=== PATIENT | female | born 1995 | race Two or more races ===

== ENCOUNTER 2019-07-06 19:44 | Emergency (ER) | payer BC, OTHER ==
[~2019-07-06] VITALS: Ht 162.6 cm; Wt 69.9 kg
[2019-07-06 21:24] LABS: Basophils # (auto) 0 10 ^3/uL (0-0.2); Basophils % (auto) 0.3 % (0.0-2.0); Eosinophils # (auto) 0.1 10 ^3/uL (0-0.8); Eosinophils % (auto) 1.9 % (0.0-7.0); Hematocrit 42.2 % (36.0-46.0); Hemoglobin 14.4 g/dL (12.2-16.2); Lymphocytes # (auto) 1.6 10 ^3/uL (0.4-5.4); Lymphocytes % (auto) 23.3 % (10.0-50.0); Mean Corpuscular Hemoglobin 33.1 pg (28.0-32.0); Mean Corpuscular Volume 97.3 fL (80.0-100.0); Monocytes # (auto) 0.4 10 ^3/uL (0-1.3); Monocytes % (auto) 5.5 % (0.0-12.0); Neutrophils # (auto) 4.8 10 ^3/uL (1.6-8.6); Nucleated Red Blood Cells % 0.1 %; Platelet Count (auto) 204 10^3/uL (140-450); Red Blood Cells 4.34 10^6/uL (4.0-5.20); Red Cell Distribution Width 13.7 % (11.8-14.3); White Blood Cell 6.9 10^3/uL (4.4-10.8)
[2019-07-06 21:40] LABS: Albumin 3.7 g/dL (3.4-5.0); BUN/Creatinine Ratio 22.2; Calcium 8.7 mg/dL (8.5-10.1); Potassium 3.9 mmol/L (3.5-5.1)
[2019-07-06 21:43] LABS: Bilirubin, Total 0.4 mg/dL (0.2-1.0); Total Protein 7.8 g/dL (6.4-8.2)
[2019-07-06 23:02] LABS: Urine Bacteria NONE SEEN /hpf (None Seen); Urine Blood 2+ /uL (Negative); Urine Mucus FEW (None Seen); Urine Specific Gravity 1.027 (1.001-1.035); Urine WBC 2 /hpf (0 - 5)
[2019-07-07] MEDS ORDERED: SODIUM CHLORIDE 0.9% 1,000 ML IV ONE (00:30)
[2019-07-07 04:00] VITALS: BP 97/54
== END 2019-07-07 04:00 | disposition home or self-care (01) ==
LOC: ER 19:44
DX: O20.9 Hemorrhage in early pregnancy, unspecified (principal); O26.891 Other specified pregnancy related conditions, first trimester; R10.9 Unspecified abdominal pain; Z3A.01 Less than 8 weeks gestation of pregnancy
CPT/HCPCS: 36415; 76801; 80053; 81001; 84702; 85025; 86850; 86900; 86901

== ENCOUNTER → 2019-09-01 | Outpatient (CLI) | payer BC, OTHER ==
[2019-09-01 17:47] LABS: Basophils # (auto) 0 10 ^3/uL (0-0.2); Basophils % (auto) 0.4 % (0.0-2.0); Eosinophils # (auto) 0.1 10 ^3/uL (0-0.8); Eosinophils % (auto) 1.8 % (0.0-7.0); Hematocrit 40.9 % (36.0-46.0); Hemoglobin 14.3 g/dL (12.2-16.2); Lymphocytes # (auto) 1.6 10 ^3/uL (0.4-5.4); Lymphocytes % (auto) 22.2 % (10.0-50.0); Mean Corpuscular Hemoglobin 33.9 pg (28.0-32.0); Mean Corpuscular Hgb Conc. 34.9 g/dL (32.0-36.0); Mean Corpuscular Volume 97.3 fL (80.0-100.0); Monocytes # (auto) 0.3 10 ^3/uL (0-1.3); Monocytes % (auto) 4.3 % (0.0-12.0); Neutrophils % (auto) 71.3 % (37.0-80.0); Platelet Count (auto) 191 10^3/uL (140-450); Red Blood Cells 4.21 10^6/uL (4.0-5.20); Red Cell Distribution Width 13.8 % (11.8-14.3)
[2019-09-01 17:55] LABS: Urine Bacteria NONE SEEN /hpf (None Seen); Urine Blood Negative /uL (Negative); Urine Mucus FEW (None Seen); Urine Specific Gravity 1.022 (1.001-1.035); Urine Sperm PRESENT /hpf (None Seen); Urine WBC 1 /hpf (0 - 5)
[2019-09-01 18:05] LABS: Albumin 3.3 g/dL (3.4-5.0); Calcium 8.6 mg/dL (8.5-10.1); Potassium 3.9 mmol/L (3.5-5.1)
[2019-09-01 18:10] LABS: BUN/Creatinine Ratio 8.8; Bilirubin, Total 0.3 mg/dL (0.2-1.0); Total Protein 7.2 g/dL (6.4-8.2)
[2019-09-01 18:25] LABS: Thyroid Stimulating Hormone 0.83 uIU/mL (0.358-3.74)
== END | disposition home or self-care (01) ==
LOC: LAB 17:24
PROVIDERS: ATTEND Internal Medicine
DX: R11.0 Nausea (principal); R35.8 Other polyuria
CPT/HCPCS: 36415; 80053; 81001; 84439; 84443; 84702; 85025; 85652

== ENCOUNTER 2019-12-28 21:22 | Observation (INO) | payer BC, OTHER ==
[~2019-12-28] VITALS: Ht 162.6 cm; Wt 83.0 kg
[2019-12-28] MEDS ORDERED: TERBUTALINE SULFATE 1 MG/ML 1ML VIAL SC SCH (22:15)
[2019-12-28] MEDS ORDERED: LACTATED RINGER'S 1,000 ML IV ONE (22:15)
[2019-12-28 22:17] LABS: Urine Bacteria NONE SEEN /hpf (None Seen); Urine Blood Negative /uL (Negative); Urine Hyaline Cast FEW /lpf (0 - 2); Urine Mucus FEW (None Seen); Urine Specific Gravity 1.014 (1.001-1.035); Urine WBC 3 /hpf (0 - 5)
== END 2019-12-28 23:25 | disposition home or self-care (01) ==
LOC: UNDOADMOB 21:22 → LDRP 21:22 → UNDODISOB 23:25
PROVIDERS: ADMIT Obstetrics & Gynecology; ATTEND Obstetrics & Gynecology
DX: O99.891 Other specified diseases and conditions complicating pregnancy (principal); M79.7 Fibromyalgia; Z3A.32 32 weeks gestation of pregnancy
CPT/HCPCS: 59025; 76815; 81001; 81002; 94760; 96360; 96361; 96372; G0378; J3105

== ENCOUNTER 2020-01-08 08:42 | Observation (INO) | payer BC, OTHER | END 2020-01-08 10:25 | disposition home or self-care (01) | LOC: LDRP 08:42 | PROVIDERS: ADMIT Specialist; ATTEND Specialist | DX: O62.9 Abnormality of forces of labor, unspecified (principal); O42.913 Preterm premature rupture of membranes, unspecified as to length of time between rupture and onset of labor, third trimester; Z3A.34 34 weeks gestation of pregnancy | CPT/HCPCS: 59025; 81002; 84112; G0378; Q0114 ==

== ENCOUNTER 2020-01-10 19:06 | Observation (INO) | payer BC, OTHER ==
[2020-01-10] MEDS ORDERED: PREN-96 PO (19:40)
[2020-01-10] MEDS: TERBUTALINE SULFATE 1 MG/ML 1ML VIAL SC SCH ×2 (20:19→20:44)
[2020-01-10] MEDS ORDERED: NIF10C GT (21:52)
[2020-01-10] MEDS ORDERED: NIF10C PO (22:06)
== END 2020-01-10 22:20 | disposition home or self-care (01) ==
LOC: LDRP 19:06
PROVIDERS: ADMIT Obstetrics & Gynecology; ATTEND Obstetrics & Gynecology
DX: O62.9 Abnormality of forces of labor, unspecified (principal); O42.913 Preterm premature rupture of membranes, unspecified as to length of time between rupture and onset of labor, third trimester; Z79.899 Other long term (current) drug therapy; Z3A.34 34 weeks gestation of pregnancy
CPT/HCPCS: 59025; 81002; 82948; 82962; 94760; 96372; G0378; J3105

== ENCOUNTER → 2020-01-13 | Outpatient (CLI) | payer BC, OTHER ==
[~2020-01-13] MED LIST: NIF10C PO; PREN-96 PO
[2020-01-13 08:59] LABS: Basophils # (auto) 0 10 ^3/uL (0-0.2); Basophils % (auto) 0.3 % (0.0-2.0); Eosinophils # (auto) 0.2 10 ^3/uL (0-0.8); Eosinophils % (auto) 2.7 % (0.0-7.0); Hematocrit 36.7 % (36.0-46.0); Hemoglobin 11.9 g/dL (12.2-16.2); Lymphocytes # (auto) 1.7 10 ^3/uL (0.4-5.4); Lymphocytes % (auto) 22.9 % (10.0-50.0); Mean Corpuscular Hemoglobin 29.7 pg (28.0-32.0); Mean Corpuscular Hgb Conc. 32.3 g/dL (32.0-36.0); Mean Corpuscular Volume 91.8 fL (80.0-100.0); Monocytes # (auto) 0.5 10 ^3/uL (0-1.3); Monocytes % (auto) 6.5 % (0.0-12.0); Neutrophils % (auto) 67.6 % (37.0-80.0); Nucleated Red Blood Cells % 0.1 %; Platelet Count (auto) 194 10^3/uL (140-450); Red Cell Distribution Width 14.6 % (11.8-14.3); White Blood Cell 7.4 10^3/uL (4.4-10.8)
== END | disposition home or self-care (01) ==
LOC: LAB 08:43
PROVIDERS: ATTEND Obstetrics & Gynecology
DX: O99.810 Abnormal glucose complicating pregnancy (principal); Z3A.35 35 weeks gestation of pregnancy
CPT/HCPCS: 36415; 85025

== ENCOUNTER 2020-01-16 08:25 | Observation (INO) | payer BC, OTHER | END 2020-01-16 09:30 | disposition home or self-care (01) | LOC: LDRP 08:25 | PROVIDERS: ADMIT Specialist; ATTEND Specialist | DX: O60.03 Preterm labor without delivery, third trimester (principal); Z3A.35 35 weeks gestation of pregnancy | CPT/HCPCS: 59025; 81002; G0378 ==

== ENCOUNTER → 2020-01-18 | Outpatient (CLI) | payer BC, OTHER ==
[2020-01-19 05:07] LABS: RPR Non Reactive (Non Reactive)
== END | disposition home or self-care (01) ==
LOC: LAB 09:39
PROVIDERS: ATTEND Obstetrics & Gynecology
DX: Z34.93 Encounter for supervision of normal pregnancy, unspecified, third trimester (principal); Z3A.35 35 weeks gestation of pregnancy
CPT/HCPCS: 84112; 86592

== ENCOUNTER 2020-01-23 08:33 | Observation (INO) | payer BC, OTHER | END 2020-01-23 10:25 | disposition home or self-care (01) | LOC: LDRP 08:33 | PROVIDERS: ADMIT Obstetrics & Gynecology; ATTEND Obstetrics & Gynecology | DX: O60.03 Preterm labor without delivery, third trimester (principal); Z3A.38 38 weeks gestation of pregnancy | CPT/HCPCS: 59025; 76818; 81002; G0378 ==

== ENCOUNTER 2020-02-04 13:44 | Observation (INO) | payer BC, OTHER | END 2020-02-04 16:13 | disposition home or self-care (01) | LOC: LDRP 13:44 | PROVIDERS: ADMIT Specialist; ATTEND Specialist | DX: O24.419 Gestational diabetes mellitus in pregnancy, unspecified control (principal); O62.9 Abnormality of forces of labor, unspecified; O12.03 Gestational edema, third trimester; Z3A.38 38 weeks gestation of pregnancy | CPT/HCPCS: 59025; 76818; 81002; 82948; 82962; G0378; U0003 ==

== ENCOUNTER 2020-02-05 07:20 | Observation (INO) | payer BC, OTHER ==
[~2020-02-05] VITALS: Ht 162.6 cm; Wt 87.1 kg
== END 2020-02-05 08:55 | disposition home or self-care (01) ==
LOC: LDRP 07:20
PROVIDERS: ADMIT Specialist; ATTEND Specialist
DX: O60.03 Preterm labor without delivery, third trimester (principal); Z3A.38 38 weeks gestation of pregnancy; Z79.899 Other long term (current) drug therapy
CPT/HCPCS: 59025; 81002; 82948; 82962; G0378

== ENCOUNTER 2020-02-05 23:41 | Observation (INO) | payer BC, OTHER ==
[~2020-02-05] VITALS: Ht 162.6 cm; Wt 86.6 kg
[2020-02-06] MEDS ORDERED: TERBUTALINE SULFATE 1 MG/ML 1ML VIAL SC SCH (00:45)
[2020-02-06] MEDS ORDERED: TERBUTALINE SULFATE 1 MG/ML 1ML VIAL SC ONE (00:46)
--- NOTE | 2020-02-06 00:58 | NUR ---
# 1 Dose of terbutaline 0.25mg given sub cut.
[2020-02-07] MEDS ORDERED: INSLANTI SC (04:58)
== END 2020-02-06 02:08 | disposition home or self-care (01) ==
LOC: UNDOADMOB 23:41 → LDRP 23:41 → UNDODISOB 02-06 02:08
PROVIDERS: ADMIT Specialist; ATTEND Specialist
DX: O62.9 Abnormality of forces of labor, unspecified (principal); Z3A.38 38 weeks gestation of pregnancy
CPT/HCPCS: 59025; 81002; 96372; G0378; J3105

== ENCOUNTER 2020-02-07 04:20 | Inpatient (IN) | payer BC, OTHER ==
[2020-02-07] VITALS (11 sets, daily range): BP systolic 91–131; BP diastolic 51–77
[~2020-02-07] VITALS: Ht 162.6 cm; Wt 87.1 kg
[2020-02-07] MEDS ORDERED: LACTATED RINGER'S 1,000 ML IV ONE (04:30)
[2020-02-07] MEDS ORDERED: ceFAZolin 1GM/50ML 50 ML IV ONE ×2 (04:30→15:39)
[2020-02-07] MEDS ORDERED: INSLANTI SC (04:58)
[2020-02-07 05:10] LABS: Basophils # (auto) 0 10 ^3/uL (0-0.2); Basophils % (auto) 0.2 % (0.0-2.0); Eosinophils # (auto) 0.1 10 ^3/uL (0-0.8); Eosinophils % (auto) 1.7 % (0.0-7.0); Hematocrit 35.3 % (36.0-46.0); Hemoglobin 11.7 g/dL (12.2-16.2); Lymphocytes # (auto) 1.6 10 ^3/uL (0.4-5.4); Lymphocytes % (auto) 21.3 % (10.0-50.0); Mean Corpuscular Hemoglobin 29.6 pg (28.0-32.0); Mean Corpuscular Hgb Conc. 33.2 g/dL (32.0-36.0); Mean Corpuscular Volume 88.9 fL (80.0-100.0); Monocytes # (auto) 0.5 10 ^3/uL (0-1.3); Neutrophils # (auto) 5.4 10 ^3/uL (1.6-8.6); Neutrophils % (auto) 69.8 % (37.0-80.0); Nucleated Red Blood Cells % 0.3 %; Platelet Count (auto) 221 10^3/uL (140-450); Red Blood Cells 3.97 10^6/uL (4.0-5.20); Red Cell Distribution Width 15.2 % (11.8-14.3); White Blood Cell 7.7 10^3/uL (4.4-10.8)
[2020-02-07 05:29] LABS: Urine Bacteria FEW /hpf (None Seen); Urine Blood Negative /uL (Negative); Urine Mucus FEW (None Seen); Urine Specific Gravity 1.013 (1.001-1.035); Urine WBC 7 /hpf (0 - 5)
[2020-02-07 05:29] LABS: Albumin 2.6 g/dL (3.4-5.0); Potassium 3.6 mmol/L (3.5-5.1)
[2020-02-07 05:34] LABS: BUN/Creatinine Ratio 16.3; Bilirubin, Total 0.2 mg/dL (0.2-1.0); Total Protein 6.7 g/dL (6.4-8.2)
[2020-02-07] MEDS: LACTATED RINGER'S 1,000 ML IV SCH ×2 (06:06→17:08)
[2020-02-07 06:07] LABS: INR 0.89 (0.9-1.15); Partial Thromboplastin Time 29.1 sec (23.0-31.2)
[2020-02-07] MEDS ORDERED: TETRACAINE 1% INJ 2 ML VIAL IJ ONE (06:56)
[2020-02-07] MEDS ORDERED: MORPHINE SULF(PF) 0.5MG/ML 10ML VIAL ONE (07:08)
[2020-02-07] MEDS ORDERED: SODIUM CHLORIDE LOCK 10 ML ONE (07:08)
[2020-02-07] MEDS ORDERED: ePHEDrine SULFATE 50 MG/ML AMP ONE (07:08)
[2020-02-07] MEDS ORDERED: MIDAZOLAM HCL 1MG/1ML-2 ML VIAL ONE (07:08)
[2020-02-07] MEDS ORDERED: oxyTOCIN 10 UNIT/ML 10ML VIAL ONE (07:08)
[2020-02-07] MEDS ORDERED: ONDANSETRON HCL 4 MG/2 ML VIAL ONE (07:08)
[2020-02-07] MEDS ORDERED: fentaNYL CITRATE 100 MCG/2 ML VL ONE (07:08)
[2020-02-07] MEDS ORDERED: EPINEPHrine HCL 1 MG/1 ML AMP ONE (07:13)
[2020-02-07] MEDS ORDERED: BUPIVACAINE/DEXTROSE MPF 0.75% 2 ML AMP IT ONE (07:13)
[2020-02-07] MEDS ORDERED: LACT. RINGERS/OXYTOCIN 20UNITS 1,000 ML IV ONE (07:30)
[2020-02-07] MEDS ORDERED: ONDANSETRON HCL 4 MG/2 ML VIAL IV PRN (07:30)
[2020-02-07] MEDS ORDERED: ePHEDrine SULFATE 50 MG/ML AMP IV PRN (07:30)
[2020-02-07] MEDS ORDERED: GUM (CHEWING) 1 GUM CHEW CHEW ONE (07:30)
[2020-02-07] MEDS ORDERED: diphenhdrAMINE HCL 50 MG/1 ML VL IV PRN (09:15)
[2020-02-07] MEDS ORDERED: NALOXONE HCL 0.4 MG/ML VIAL IV PRN (09:15)
[2020-02-07] MEDS ORDERED: MORPHINE SULFATE 4 MG/ML SYR/VIAL IV PRN (09:15)
[2020-02-07] MEDS ORDERED: ACCU-CHEK COMFORT CURVE STRIP VI ONE (09:15)
[2020-02-07] MEDS ORDERED: KETOROLAC TROMETH 30 MG/ML 1ML VIAL IV ONE (09:15)
[2020-02-07] MEDS ORDERED: HYDROmorphone HCL 2 MG/ML VL IV PRN (09:15)
[2020-02-07] MEDS ORDERED: METOCLOPRAMIDE HCL 5MG/ml INJ 2ml VIAL IV PRN (09:15)
[2020-02-07 10:11] LABS: Hematocrit 35.2 % (36.0-46.0); Hemoglobin 11.5 g/dL (12.2-16.2); Mean Corpuscular Hemoglobin 29.3 pg (28.0-32.0); Mean Corpuscular Hgb Conc. 32.8 g/dL (32.0-36.0); Mean Corpuscular Volume 89.2 fL (80.0-100.0); Platelet Count (auto) 181 10^3/uL (140-450); Red Blood Cells 3.94 10^6/uL (4.0-5.20); Red Cell Distribution Width 15.2 % (11.8-14.3); White Blood Cell 7.8 10^3/uL (4.4-10.8)
[2020-02-07 10:16] LABS: Basophils % (manual) 0 (0.0-2.0); Blast Cells 0; Promyelocytes % 0; Reactive Lymphocytes 0
[2020-02-07] MEDS: MORPHINE SULFATE 4 MG/ML SYR/VIAL IV PRN ×3 (11:34→20:07)
[2020-02-07 11:53] LABS: Band Neutrophils % (manual) 6; Eosinophils % (manual) 2 (0-7); Lymphocytes % (manual) 21 (10.0-50.0); Metamyelocytes % 1; Monocytes % (manual) 3 (0-12); Myelocytes % 1
[2020-02-07] MEDS ORDERED: ceFAZolin 1GM/50ML 50 ML IV SCH (12:00)
[2020-02-07] MEDS: ceFAZolin 1GM/50ML 50 ML IV SCH (15:50)
--- NOTE | 2020-02-07 18:09 | NUR ---
SURYA Ramirez RN Addendum: 02/07/20 at 1809 by THANH VEGA RN Amended: Links added.
[2020-02-07] MEDS ORDERED: ACETAMINOPHEN IV 1000 MG/100ML (10MG/ML) IV PRN (23:00)
[2020-02-08] VITALS (8 sets, daily range): BP systolic 101–125; BP diastolic 57–71
[2020-02-08] MEDS: ceFAZolin 1GM/50ML 50 ML IV SCH ×2 (00:06→07:10)
--- NOTE | 2020-02-08 00:15 | NUR ---
Ambulation: Patient OOB with standby assistance by RN. Patient ambulated to nursery with steady gait. [facility] teaching provided with returned demonstration by patient. Clean gown provided and bed linen changed. Patient ambulated back to bed with steady gait and no distress noted.
[2020-02-08] MEDS: MORPHINE SULFATE 4 MG/ML SYR/VIAL IV PRN (04:27)
--- NOTE | 2020-02-08 04:54 | NUR ---
March catheter dc'd Order to discontinue march catheter. March dc'd with clean technique following deflation of balloon. Patient tolerated well with no complaints of pain. Continue care.
[2020-02-08 05:08] LABS: RPR Non Reactive (Non Reactive)
[2020-02-08] MEDS ORDERED: KETOROLAC TROMETH 30 MG/ML 1ML VIAL IV ONE (06:45)
[2020-02-08 07:42] LABS: Basophils # (auto) 0 10 ^3/uL (0-0.2); Basophils % (auto) 0.1 % (0.0-2.0); Eosinophils # (auto) 0.1 10 ^3/uL (0-0.8); Eosinophils % (auto) 0.7 % (0.0-7.0); Hematocrit 31.8 % (36.0-46.0); Hemoglobin 10.6 g/dL (12.2-16.2); Lymphocytes % (auto) 12.7 % (10.0-50.0); Mean Corpuscular Hemoglobin 29.7 pg (28.0-32.0); Mean Corpuscular Hgb Conc. 33.3 g/dL (32.0-36.0); Mean Corpuscular Volume 89.2 fL (80.0-100.0); Monocytes # (auto) 0.4 10 ^3/uL (0-1.3); Neutrophils # (auto) 6.5 10 ^3/uL (1.6-8.6); Neutrophils % (auto) 81.5 % (37.0-80.0); Nucleated Red Blood Cells % 0.1 %; Platelet Count (auto) 171 10^3/uL (140-450); Red Blood Cells 3.56 10^6/uL (4.0-5.20); Red Cell Distribution Width 15.6 % (11.8-14.3); White Blood Cell 7.9 10^3/uL (4.4-10.8)
[2020-02-08] MEDS: DOCUSATE SOD 100 MG CAP PO SCH ×2 (10:10→22:00)
[2020-02-08] MEDS: SIMETHICONE 80 MG CHEWABLE TABLET PO PRN ×3 (10:10→21:59)
[2020-02-08] MEDS: HYDROcodone-ACET 5/325MG TAB PO PRN ×4 (10:10→18:07)
[2020-02-08] MEDS: IBUPROFEN 800 MG TAB PO PRN ×2 (13:51→22:00)
[2020-02-09 03:00] VITALS: BP 103/59
[2020-02-09] MEDS: HYDROcodone-ACET 5/325MG TAB PO PRN ×5 (03:06→18:50)
[2020-02-09 07:00] VITALS: BP 122/72
[2020-02-09] MEDS: IBUPROFEN 800 MG TAB PO PRN ×3 (07:05→16:49)
[2020-02-09] MEDS: DOCUSATE SOD 100 MG CAP PO SCH ×2 (09:54→22:12)
[2020-02-09 11:00] VITALS: BP 105/75
[2020-02-09 15:00] VITALS: BP 88/55
--- NOTE | 2020-02-09 16:57 | NUR ---
IV removal IV DC'd with clean sterile technique, catheter fully intact. Pressure dressing applied to site. Patient tolerated well. NOTE:
--- NOTE | 2020-02-09 18:10 | NUR ---
Received care and report from Timoteo Harris.
[2020-02-09 18:38] VITALS: BP 106/73
--- NOTE | 2020-02-09 21:34 | NUR ---
SBAR to Boogie Limon CMN, pt unable to have a bowel movement request to give a suppository. Received order Dulcolax 10 mg RC once.
[2020-02-09] MEDS ORDERED: BISACODYL 10 MG RECT SUPP PR ONE (21:45)
[2020-02-09 23:00] VITALS: BP 110/75
[2020-02-09] MEDS ORDERED: MEASLES, MUMPS & RUBELLA VAC(MMRII) 0.5ML SC ONE (23:15)
[2020-02-10] MEDS: HYDROcodone-ACET 5/325MG TAB PO PRN ×2 (03:03→08:16)
[2020-02-10 03:17] VITALS: BP 126/75
[2020-02-10 07:02] VITALS: BP 103/55
--- NOTE | 2020-02-10 09:40 | NUR ---
Discharge: Discharge instructions given as ordered. Pt encouraged to follow up with Dr Fu on Thursday02/14/20 @ 0900. All questions and concerns addressed. Patient given Save you life handout and was given instruction. Patient verbalized understanding. Medication reconciliation completed and copy given to patient. All required/requested vaccines given and copies of vaccinations given to patient. Patient encouraged to prepare to depart unit.
[2020-02-10] MEDS: DOCUSATE SOD 100 MG CAP PO SCH (10:00)
--- NOTE | 2020-02-10 10:22 | NUR ---
Discharge: Patient ambulates to vehicle with all paperwork and all personal belongings, accompanied by staff and family member. No distress noted at time of departure, no adverse changes in status since initial assessment.
== END 2020-02-10 10:22 | disposition home or self-care (01) | DRG 788 ==
LOC: LDRP 04:20
PROVIDERS: ADMIT Obstetrics & Gynecology; ATTEND Obstetrics & Gynecology
PROC: 10D00Z1 Extraction of Products of Conception, Low, Open Approach (ICD-10-PCS; principal; 2020-02-07 07:36)
DX: O24.424 Gestational diabetes mellitus in childbirth, insulin controlled (principal); Z3A.39 39 weeks gestation of pregnancy; Z37.0 Single live birth
CPT/HCPCS: 36415; 59025; 80053; 81001; 82948; 84112; 85007; 85025; 85027; 85610; 85730; 86592; 86850; 86900; 86901; 96360; 96361; 96372; G0378; J0131; J0171; J0690; J1885; J2250; J2405; J2590

== ENCOUNTER 2021-05-10 00:08 | Emergency (ER) | payer BC, MEDICAID ==
[~2021-05-10] VITALS: Ht 162.6 cm; Wt 81.6 kg
[~2021-05-10 00:08] MED LIST changes: -NIF10C PO
[2021-05-10] MEDS ORDERED: KETOROLAC TROMETH 30 MG/ML 1ML VIAL IM ONE (04:15)
[2021-05-10] MEDS ORDERED: IBUP800T27 PO (05:40)
[2021-05-10] MEDS ORDERED: HYDROcodone-ACET 5/325MG TAB PO ONE (05:45)
[2021-05-10 06:18] VITALS: BP 117/84
== END 2021-05-10 06:21 | disposition home or self-care (01) ==
LOC: ER 00:08
DX: R10.2 Pelvic and perineal pain (principal); Z32.02 Encounter for pregnancy test, result negative
CPT/HCPCS: 81025; 96372; 99283; J1885

== ENCOUNTER → 2021-05-15 | Outpatient (CLI) | payer BC, MEDICAID ==
[~2021-05-15] MED LIST changes: +IBUP800T27 PO
[2021-05-15 11:43] LABS: Basophils # (auto) 0 10 ^3/uL (0-0.2); Basophils % (auto) 0.4 % (0.0-2.0); Eosinophils # (auto) 0.3 10 ^3/uL (0-0.8); Eosinophils % (auto) 3.9 % (0.0-7.0); Hematocrit 41.9 % (36.0-46.0); Hemoglobin 14.8 g/dL (12.2-16.2); Lymphocytes # (auto) 2.5 10 ^3/uL (0.4-5.4); Lymphocytes % (auto) 38.3 % (10.0-50.0); Mean Corpuscular Hemoglobin 33.1 pg (28.0-32.0); Mean Corpuscular Hgb Conc. 35.3 g/dL (32.0-36.0); Mean Corpuscular Volume 93.8 fL (80.0-100.0); Monocytes # (auto) 0.5 10 ^3/uL (0-1.3); Monocytes % (auto) 7.3 % (0.0-12.0); Neutrophils # (auto) 3.2 10 ^3/uL (1.6-8.6); Neutrophils % (auto) 50.1 % (37.0-80.0); Nucleated Red Blood Cells % 0.1 %; Red Blood Cells 4.47 10^6/uL (4.0-5.20); Red Cell Distribution Width 13.3 % (11.8-14.3); White Blood Cell 6.5 10^3/uL (4.4-10.8)
[2021-05-15 12:43] LABS: Albumin 4.1 g/dL (3.4-5.0); Calcium 8.7 mg/dL (8.5-10.1); Potassium 3.5 mmol/L (3.5-5.1)
[2021-05-15 12:49] LABS: BUN/Creatinine Ratio 15.3; Bilirubin, Total 0.3 mg/dL (0.2-1.0); Total Protein 7.6 g/dL (6.4-8.2)
[2021-05-15 12:51] LABS: Free T4 (Free Thyroxine) 0.96 ng/dL (0.89-1.76); Leuteinizing Hormone 2.9 IU/L
[2021-05-16 08:55] LABS: Follicle Stimulating Hormone 2.52 IU/L (SEE BELOW)
== END | disposition home or self-care (01) ==
LOC: LAB 11:21
PROVIDERS: ATTEND Internal Medicine
DX: R10.2 Pelvic and perineal pain (principal)
CPT/HCPCS: 36415; 80053; 83001; 83002; 84439; 84443; 85025; 85652

== ENCOUNTER → 2022-02-03 | Outpatient (CLI) | payer BC, MEDICAID ==
[2022-02-03 07:51] LABS: Basophils # (auto) 0 10 ^3/uL (0-0.2); Basophils % (auto) 0.5 % (0.0-2.0); Eosinophils # (auto) 0.2 10 ^3/uL (0-0.8); Eosinophils % (auto) 3.4 % (0.0-7.0); Hematocrit 41.6 % (36.0-46.0); Hemoglobin 14.3 g/dL (12.2-16.2); Lymphocytes # (auto) 2.5 10 ^3/uL (0.4-5.4); Lymphocytes % (auto) 48.3 % (10.0-50.0); Mean Corpuscular Hemoglobin 33.2 pg (28.0-32.0); Mean Corpuscular Hgb Conc. 34.3 g/dL (32.0-36.0); Mean Corpuscular Volume 96.9 fL (80.0-100.0); Monocytes # (auto) 0.3 10 ^3/uL (0-1.3); Monocytes % (auto) 6.4 % (0.0-12.0); Neutrophils # (auto) 2.1 10 ^3/uL (1.6-8.6); Neutrophils % (auto) 41.4 % (37.0-80.0); Nucleated Red Blood Cells % 0.1 %; Red Blood Cells 4.29 10^6/uL (4.0-5.20); Red Cell Distribution Width 13.3 % (11.8-14.3); White Blood Cell 5.1 10^3/uL (4.4-10.8)
[2022-02-03 09:25] LABS: Prolactin 8.13 ng/mL (2.8-29.2)
[2022-02-03 09:26] LABS: Free T4 (Free Thyroxine) 1.08 ng/dL (0.89-1.76)
== END | disposition home or self-care (01) ==
LOC: LAB 07:30
PROVIDERS: ATTEND Internal Medicine
DX: N92.0 Excessive and frequent menstruation with regular cycle (principal)
CPT/HCPCS: 36415; 84146; 84439; 84443; 85025

== ENCOUNTER 2022-11-30 03:34 | Emergency (ER) | payer BC, MEDICAID ==
[~2022-11-30] VITALS: Ht 162.6 cm; Wt 81.7 kg
[~2022-11-30 03:34] MED LIST changes: +IBUP-1456 PO; -IBUP800T27 PO
[2022-11-30 07:28] VITALS: TEMP 97.7; O2SAT 99
[2022-11-30] MEDS ORDERED: HYDROmorphone HCL 2 MG/ML VL/or syr IM ONE (07:30)
[2022-11-30 07:43] VITALS: BP 110/72; PULSE 66; RESP 18
[2022-11-30] MEDS ORDERED: PERCOT PO (08:25)
[2022-11-30] MEDS ORDERED: IBUP-1455 PO (08:27)
== END 2022-11-30 08:28 | disposition home or self-care (01) ==
LOC: ER 03:34
DX: M24.812 Other specific joint derangements of left shoulder, not elsewhere classified (principal)
CPT/HCPCS: 96372; 99283; J1170